=== PATIENT | female | born 1945 | race Caucasian/White ===

== ENCOUNTER 2017-07-22 12:35 | Emergency (ER) | payer MEDICARE, OTHER ==
[2017-07-22] MEDS ORDERED: Acetaminophen 325 MG TAB ONE (13:00)
--- NOTE | 2017-07-22 15:20 | RAD ---
FOUR VIEWS LEFT KNEE: DATE: 07/22/17. HISTORY: Left knee pain. FINDINGS: There is minimal tricompartment osteophytosis. Calcifications overlie both the medial and lateral stacey int compartment suggesting chondrocalcinosis. There is no fracture or dislocation seen. Lateral vie w is rotated limiting evaluation for joint effusion. IMPRESSION: 1. Minimal osteoarthritis and chondrocalcinosis. 2. No acute osseous abnormality left knee. POS: [facility]
--- NOTE | 2017-07-22 15:41 | ULT ---
LEFT LOWER EXTREMITY VENOUS DOPPLER WITH SPECTRAL ANALYSIS AND COLOR FLOW EVALUATION: DATE: 07/22/17. HISTORY: Left knee pain. FINDINGS: Owens scale, color flow, Doppler evaluation, and spectral analysis of the left lower extremity venous structures is performed with 2D imaging. The left lower extremity common femoral, superficial femora l, popliteal, posterior tibial, most proximal greater saphenous and profunda femoral veins are imaged . Due to patient's pain, the patient would not allow to obtain complete compression of the left common femoral vein, although there is almost complete lumen compressibility identified involving this vein. There is otherwise normal lumen compressibility, flow, and augmentation in the remaining visualized deep venous structures of the left lower extremity. IMPRESSION: There is incomplete lumen compressibility left common femoral vein, but this is secondary to patient' s inability to tolerate compression due to discomfort. There is no thrombus in the left common femor al vein, and there is normal flow present. There is otherwise no evidence of a deep vein thrombosis involving the remaining visualized deep venous structures of the left lower extremity. POS: [facility]
== END 2017-07-22 14:08 | disposition home or self-care (01) ==
LOC: SCSER 12:35
DX: M17.12 Unilateral primary osteoarthritis, left knee (principal); E78.5 Hyperlipidemia, unspecified; I10 Essential (primary) hypertension; F41.9 Anxiety disorder, unspecified; F32.9 Major depressive disorder, single episode, unspecified; Z79.899 Other long term (current) drug therapy; Z79.82 Long term (current) use of aspirin